=== PATIENT | female | born 1970 | race Hispanic/Latino ===

== ENCOUNTER 2017-05-02 23:04 | Emergency (ER) | payer OTHER ==
[~2017-05-02] VITALS: Ht 157.5 cm; Wt 70.9 kg
[2017-05-02 23:06] VITALS: BP 174/80; PULSE 58; RESP 20; O2SAT 99
--- NOTE | 2017-05-02 23:52 | ED.REPORT ---
HPI-Trauma Minor / Fall Date of Service May 02, 2017 ED Provider: Dean Mahmood DO Pt is a 47 year old female with a history of HTN and stroke resulting in paralysis and decreased sensation presents to the ED after a ground level fall prior to arrival. She c/o associated right shoulder and right ankle pain with swelling. Her sensation of pain is limited due to her stoke in 11/01. Pt denies pain in her right hip, LOC, and hitting her head. She reports that her foot go stuck in a pile of clothes, causing her to lose balance and fall on the carpet at her house on her right side. Pt denies . Nursing Notes Stated Complaint: FELL Chief Complaint: Multiple Trauma/Fall Nursing Notes Reviewed: Yes Allergies: Coded Allergies: No Known Allergies (Verified , 07/01/16) No Active Prescriptions or Reported Meds General Time Seen by MD: 23:51 Chief Complaint Fall Hx Obtained From: Patient Arrived By: Walk-in Onset Occurred: Just prior to arrival Symptom Duration: Since onset Location: Ankle right Shoulder right Quality: Painful Severity: Current: Mild Severity: Maximum: Mild Recent Healthcare: No recent doctor visit, No recent hospitalization Similar Sx Previous: No Past Medical History Past Medical History Admit for a pelvic mass with ascites and anemia (transferred to [facility]) in 2008,-negative for cancer with no chemotherapy Stroke (11/01) - Paralysis and decrease sensation Reports: Hypertension Past Surgical History Hysterectomy Reports: Hysterectomy Family History Father had DM type two Mother had hypertension Smoking History Never Smoker Social History Alcohol Use: "Social" Drug Use: Denies drug use Other Social History: Good social support, , Local resident Occupation lives with family Ambulatory Status Independent Review of Systems Musculoskeletal: Reports: Extremity pain, Denies: Joint pain Neurologic: Denies: Change LOC, Syncope Complete sys rev & neg: except as marked. Physical Exam Initial Vital Signs Vital Signs (First) Date Time Temp Pulse Resp B/P Pulse Ox O2 Delivery O2 Flow Rate FiO2 05/02/17 23:06 36.2 58 20 174/80 99 Room Air Initial VS: Reviewed Head / Eyes: Atraumatic, Normocephalic Respiratory: Breath sounds normal, Clear to auscultation, No respiratory distress Cardiovascular: Regular rate & rhythm, Heart sounds normal, Intact distal pulses Abdomen / GI: Soft, Non-tender Skin: Warm, Dry, No cyanosis Neurologic: Alert, Oriented, Nonfocal Psychiatric: Mood/affect normal, Behavior normal General/Constitutional: Awake, Alert, Cooperative Neck: Atraumatic, Full range of motion Upper Extremity / MS: Vascular intact Swelling, but muscular atrophy of right arm. 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 Lower Extremity / Pelvis / MS: Vascular intact Swelling, but muscular atrophy of right leg. Ankle / Foot: Vascular intact Mild soft tissue swelling in the right ankle. Interpretation & Diagnostics X-Ray Interpretation Xray Interpretation: Normal; no fracture X-Ray Ordered: Shoulder right Interpretation / Wet Read by: Wet read ED physician Xray Interpretation: Normal; no fracture X-Ray Ordered: Tibia fibula right Interpretation / Wet Read by: Wet read ED physician Re-Eval/Medical Decision Med Decision/Clinical Course Mechanical fall without head or neck injury. She did land on her right shoulder and right leg and she has decreased sensation secondary to stroke. X- rays of these bones were negative for obvious displaced fracture. Pain was controlled as is. She has a foot drop brace and she will use her walker. Recommend close follow-up. CT brain felt to be not indicated based on history and physical. Source of Hx: Old records Re-Evaluation/Progress : Time of Eval: 01:01 Re-Evaluation/Progress Note: Pt rechecked. Informed pt of plan for discharge. Pt understands and agrees with plan for discharge. F/U instructions and RTER warnings given. All questions addressed. Counseled Regarding: Diagnosis, Need for follow-up, When/why to return to ED Discharge & Departure Impression: Primary Impression: Fall Encounter type: initial encounter Qualified Code: W19.XXXA - Unspecified fall, initial encounter Additional Impressions: Shoulder contusion Encounter type: initial encounter Laterality: right Qualified Code: S40.011A - Contusion of right shoulder, initial encounter Contusion of leg, right Encounter type: initial encounter Qualified Code: S80.11XA - Contusion of right lower leg, initial encounter Disposition: Home Discharge Condition All VS Reviewed: Yes Condition: Stable Patient Instructions: Contusion in Adults (ED), Fall Prevention (ED) Additional Instructions: There were no signs of fracture in your x-ray today. Take Tylenol as directed for pain. Keep taking you regular medications. Careful when you ambulate. Follow-up with your primary care provider as scheduled. Return to the Emergency Department for any new or worsening symptoms. Referrals: Alie Elizabeth (PCP) Lynda Attestation Portions of this note were transcribed by Juanita Story. I, Dr. Mahmood personally performed the history, physical exam and medical decision-making; I reviewed and confirmed the accuracy of the information in the transcribed note. Signed by : Lynda Hauser, 05/03/17 and 02:30. copies to: Alie Elizabeth Todd P DO May 02, 2017 23:52 Juainta Collins May 03, 2017 00:24
[2017-05-03 01:12] VITALS: BP 108/72; PULSE 62; RESP 16; O2SAT 99
--- NOTE | 2017-05-03 08:25 | DRSVH ---
PROCEDURE: X-RAY RIGHT SHOULDER, MINIMUM TWO VIEWS ([id number]) INDICATIONS: fall TECHNIQUE: 3 views of the shoulder were acquired. COMPARISON: None. FINDINGS: Bones: No fractures or dislocations. No suspicious bony lesions. Visualized ribs appear intact. Soft tissues: No suspicious soft tissue calcifications. IMPRESSION: 1. No fracture or dislocation. Dictated by: Barrie Maguire M.D. on 05/03/2017 at 8:23 Approved by: Barrie Maguire M.D. on 05/03/2017 at 8:23
--- NOTE | 2017-05-03 08:25 | DRSVH ---
PROCEDURE: X-RAY RIGHT TIBIA/FIBULA, TWO VIEWS ([id number]) INDICATIONS: fall TECHNIQUE: 2 views of the tibia and fibula were acquired. COMPARISON: None. FINDINGS: Bones: No fractures or dislocations. Visualized osseous structures appear osteopenic. No suspiciou s bony lesions. Soft tissues: No suspicious soft tissue calcifications or masses. IMPRESSION: 1. No fracture or dislocation. Dictated by: Barrie Maguire M.D. on 05/03/2017 at 8:22 Approved by: Barrie Maguire M.D. on 05/03/2017 at 8:23
== END 2017-05-03 01:13 | disposition home or self-care (01) ==
LOC: SED 23:04
DX: S40.011A Contusion of right shoulder, initial encounter (principal); S80.11XA Contusion of right lower leg, initial encounter; W01.0XXA Fall on same level from slipping, tripping and stumbling without subsequent striking against object, initial encounter; Y92.009 Unspecified place in unspecified non-institutional (private) residence as the place of occurrence of the external cause; Y93.89 Activity, other specified; Y99.8 Other external cause status; I10 Essential (primary) hypertension; Z86.73 Personal history of transient ischemic attack (TIA), and cerebral infarction without residual deficits